=== PATIENT | male | born 1995 | race Caucasian/White ===

== ENCOUNTER 2022-07-07 21:57 | Emergency (ER) | payer OTHER ==
[~2022-07-07] VITALS: Ht 177.8 cm; Wt 77.7 kg
[2022-07-08] MEDS ORDERED: BACITRACIN OINTMENT 30GM TUBE TOP STA (01:11)
[2022-07-08] MEDS ORDERED: LIDOCAINE 4% CREAM 5GM (LMX4) TOP ONE (01:15)
[2022-07-08 02:15] VITALS: BP 131/73
== END 2022-07-08 03:06 | disposition home or self-care (01) ==
LOC: M ED 21:57 → EDBD 21:57 → M ED 07-08 03:06
DX: S01.01XA Laceration without foreign body of scalp, initial encounter (principal); W01.10XA Fall on same level from slipping, tripping and stumbling with subsequent striking against unspecified object, initial encounter; Y92.009 Unspecified place in unspecified non-institutional (private) residence as the place of occurrence of the external cause; Y93.89 Activity, other specified; Y99.8 Other external cause status

== ENCOUNTER 2022-07-23 13:42 | Emergency (ER) | payer OTHER ==
[~2022-07-23] VITALS: Ht 177.8 cm; Wt 88.1 kg
[2022-07-23 13:42] VITALS: BP 148/79
== END 2022-07-23 14:08 | disposition home or self-care (01) ==
LOC: M ED 13:42
DX: Z48.02 Encounter for removal of sutures (principal)